=== PATIENT | female | born 1950 | race Caucasian/White ===

== ENCOUNTER 2022-11-07 08:18 | Outpatient (CLI) | payer MEDICARE, SELFPAY ==
--- NOTE | 2022-11-07 08:30 | USCV_ITS ---
Darline Fisher Age: 72 Gender: F : 1950 Exam Date: 11/07/2022 08:44 Ordering Phys: Shabbir Peterson Technologist: Marylou Carreon [place] [facility] [place]ication: LOST VISION IN LT EYE POST CT INJECTION OF ENHANCER. Risk Factors: Unknown Previous Vascular Surgery: None Right Brachial BP: / Left Brachial BP: / Right Left Velocity (cm/s) Spectral Plaque Velocity (cm/s) Spectral Plaque Syst/Diast Broadening Syst/Diast Broadening 110.30/27.60 Prox CCA 118.00/ 24.30 94.80/ 26.50 Mid CCA 83.80 / 16.50 / Distal CCA 94.80 / 22.10 118.70/23.40 Prox ICA 87.10 / 27.60 107.90/32.40 Mid ICA 81.60 / 34.20 93.50/ 34.20 Distal ICA 93.70 / 23.20 152.90 ECA 123.50 1.25 ICA/CCA 1.12 Antegrade Vertebral Antegrade 77.20/ 16.50 cm/s 63.90/ 17.60 cm/s Tri Subclavian Tri 111.4 145.7 0 0 CONCLUSIONS Right ICA stenosis <50%. Moderate irregular calcified atheromatous plaque right carotid bulb/ICA. Left ICA stenosis <50%. Moderate irregular calcified atheromatous plaque left carotid bulb/ICA. Normal antegrade Doppler flow noted in the right vertebral artery. Normal antegrade Doppler flow noted in the left vertebral artery. Kennedy Lynn MD (Electronically Signed) Final Date: 07 November 2022 15:51 S
== END 2022-11-07 08:19 | disposition home or self-care (01) ==
PROVIDERS: Visit Provider Student in an Organized Health Care Education/Training Program
DX: R09.89 Other specified symptoms and signs involving the circulatory and respiratory systems (principal); E78.5 Hyperlipidemia, unspecified; E11.3212 Type 2 diabetes mellitus with mild nonproliferative diabetic retinopathy with macular edema, left eye
CPT/HCPCS: 93880

== ENCOUNTER 2023-09-16 11:49 | Outpatient (RCR) | payer MEDICARE, SELFPAY | END 2023-09-30 23:59 | disposition home or self-care (01) | LOC: SOT 11:49 | PROVIDERS: PCP Orthopaedic Surgery; Visit Provider Orthopaedic Surgery | DX: M25.531 Pain in right wrist (principal); Z98.890 Other specified postprocedural states | CPT/HCPCS: 97022; 97110; 97140; 97165; 97530 ==

== ENCOUNTER 2023-10-01 08:42 | Outpatient (RCR) | payer MEDICARE, SELFPAY | END 2023-10-31 18:00 | disposition home or self-care (01) | LOC: SOT 08:42 | PROVIDERS: PCP Orthopaedic Surgery; Visit Provider Orthopaedic Surgery | DX: M79.641 Pain in right hand (principal); Z98.890 Other specified postprocedural states | CPT/HCPCS: 97022; 97110; 97140 ==

== ENCOUNTER 2023-11-01 06:30 | Outpatient (RCR) | payer MEDICARE, SELFPAY | END 2023-11-30 23:59 | disposition home or self-care (01) | LOC: SOT 06:30 | PROVIDERS: PCP Orthopaedic Surgery; Visit Provider Orthopaedic Surgery | DX: M79.641 Pain in right hand (principal) | CPT/HCPCS: 97022; 97110; 97140 ==

== ENCOUNTER → 2023-12-25 11:01 | Outpatient (BNVA) | payer MEDICARE, SELFPAY | PROVIDERS: PCP Orthopaedic Surgery; Visit Provider Family Medicine | DX: E11.319 Type 2 diabetes mellitus with unspecified diabetic retinopathy without macular edema (principal); E11.42 Type 2 diabetes mellitus with diabetic polyneuropathy; I10 Essential (primary) hypertension; E78.2 Mixed hyperlipidemia; N18.30 Chronic kidney disease, stage 3 unspecified; N39.0 Urinary tract infection, site not specified; D64.9 Anemia, unspecified; Z23 Encounter for immunization; Z80.0 Family history of malignant neoplasm of digestive organs; M47.816 Spondylosis without myelopathy or radiculopathy, lumbar region; Z76.89 Persons encountering health services in other specified circumstances | CPT/HCPCS: 80053; 82607; 83036; 84443; 85025 ==

== ENCOUNTER 2024-03-25 16:15 | Outpatient (CLI) | payer MEDICARE, SELFPAY ==
--- NOTE | 2024-03-25 16:24 | XRR_ITS ---
PROCEDURE INFORMATION: Exam: XR Right Knee Exam date and time: 03/25/2024 4:31 PM Age: 73 years old Clinical indication: Pain; Knee; Right; Additional info: R knee pain, oa TECHNIQUE: Imaging protocol: Radiologic exam of the right knee. Views: 3 views. COMPARISON: No relevant prior studies available. FINDINGS: Bones/joints: There is moderate narrowing of the medial compartment of the femorotibial joint with subchondral sclerosis and marginal spurs. Very mild narrowing is seen involving the lateral compartment of the femorotibial joint with mild subchondral sclerosis and tiny spurs. There is a prominent hypertrophic spur arising from the anterior aspect of the tibial plateau as seen on the lateral view. There is pointing of the tibial spines. There is moderate to marked narrowing of the patellofemoral joint with subchondral sclerosis and marginal spurs. No acute fracture is detected. There is chronic appearing cortical thickening involving the fibular head and neck, potentially related to prior trauma. Soft tissues: There is mild suprapatellar soft tissue fullness suspicious for a small joint effusion. XR/XR knee RT 3V* [id number] IMPRESSION: 1. 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 2. 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 3. Possible small joint effusion. 4. No acute fracture detected.
== END 2024-03-25 16:16 | disposition home or self-care (01) ==
LOC: RAD 16:17
PROVIDERS: PCP Family Medicine; Visit Provider Family Medicine
DX: M17.11 Unilateral primary osteoarthritis, right knee (principal); M77.8 Other enthesopathies, not elsewhere classified; R93.6 Abnormal findings on diagnostic imaging of limbs
CPT/HCPCS: 73562

== ENCOUNTER → 2024-07-14 08:35 | Outpatient (BNVA) | payer MEDICARE, SELFPAY | PROVIDERS: PCP Family Medicine; Visit Provider Family Medicine | DX: E11.319 Type 2 diabetes mellitus with unspecified diabetic retinopathy without macular edema (principal); E11.65 Type 2 diabetes mellitus with hyperglycemia; Z79.4 Long term (current) use of insulin; E78.2 Mixed hyperlipidemia | CPT/HCPCS: 80061; 82043; 83036 ==

== ENCOUNTER → 2025-01-13 15:47 | Outpatient (BNVA) | payer MEDICARE, SELFPAY | PROVIDERS: PCP Family Medicine; Visit Provider Family Medicine | DX: Z11.59 Encounter for screening for other viral diseases (principal); E11.319 Type 2 diabetes mellitus with unspecified diabetic retinopathy without macular edema; E11.65 Type 2 diabetes mellitus with hyperglycemia; I10 Essential (primary) hypertension; E78.2 Mixed hyperlipidemia; N18.31 Chronic kidney disease, stage 3a; Z79.4 Long term (current) use of insulin | CPT/HCPCS: 80053; 83036; 84439; 84443; 85025; 86803 ==

== ENCOUNTER 2025-01-25 09:07 | Outpatient (CLI) | payer MEDICARE, SELFPAY ==
--- NOTE | 2025-01-25 09:30 | USR_ITS ---
PROCEDURE INFORMATION: Exam: US Bilateral Noninvasive Physiologic Study of the Lower Extremity Arteries, Limited Exam date and time: 01/25/2025 9:53 AM Age: 74 years old Clinical indication: Other: Decreased pulses in right foot; Additional info: Decreased pulse R foot TECHNIQUE: Imaging protocol: Bilateral Limited bilateral noninvasive physiologic studies of lower extremity arteries. Waveforms were obtained and evaluated. Images were documented and archived. Exam is limited. COMPARISON: CR XR knee RT 3V* [id number] 03/25/2024 4:31 PM FINDINGS: Right Ankle-Brachial Index: 1.35, digit to brachial index 1.03 Left Ankle-Brachial Index: 1.35, digit to brachial index 1.04 US/CV ankle brachial index [id number] IMPRESSION: No evidence of stenosis or occlusion in the lower extremity.
== END 2025-01-25 09:08 | disposition home or self-care (01) ==
LOC: RAD 09:09
PROVIDERS: PCP Family Medicine; Visit Provider Family Medicine
DX: R09.89 Other specified symptoms and signs involving the circulatory and respiratory systems (principal)
CPT/HCPCS: 93922